=== PATIENT | male | born 1955 | race Hispanic/Latino ===

== ENCOUNTER → 2016-10-17 | Outpatient (CLI) | payer SELFPAY | END | disposition home or self-care (01) | LOC: YCFC.O 14:43 | DX: N40.0 Benign prostatic hyperplasia without lower urinary tract symptoms (principal); I10 Essential (primary) hypertension ==

== ENCOUNTER 2018-05-17 20:55 | Emergency (ER) | payer SELFPAY ==
--- NOTE | 2018-05-17 21:20 | ED.PDOC ---
History of Present Illness - General Chief Complaint: Neuro Symptoms/Deficits Stated Complaint: dizziness Time Seen by Provider: 05/17/18 21:12 Source: family - Exam Limitations: no limitations - History of Present Illness Initial Comments: Kev Garcia 61 y/o male brought by with onset of dizziness feels he was spinning around followed by nausea /vomiting one hour after eating dinner then smoked marijuana.He has history of high blood pressure but not taking antihypertensive medicine for the last one year.Denies recent or remote head trauma,chest pains,blurry vision,hearing loss,ringing in ears but with generalized weakness afterwards.On arrival dizziness slightly better but still feels nauseated. Timing/Duration: 1-3 hours Severity: moderate Episode Description: see hpi Improving Factors: nothing Worsening Factors: nothing Associated Symptoms: other - see hpi Allergies/Adverse Reactions: Allergies NO KNOWN ALLERGY Allergy (Verified 05/17/18 21:39) Home Medications: Ambulatory Orders NK 05/17/18 Review of Systems - Review of Systems Constitutional: States: see HPI, weakness EENTM: States: no symptoms reported Respiratory: States: no symptoms reported Cardiology: States: no symptoms reported Gastrointestinal/Abdominal: States: no symptoms reported Genitourinary: States: no symptoms reported Musculoskeletal: States: no symptoms reported Skin: States: no symptoms reported Neurological: States: see HPI All other Systems: Reviewed and Negative, No Change from Baseline Past Medical History (General) - Patient Medical History Hx Hypertension: Yes - not taking meds quit a year ago Family Medical History - Family History Father Hx Cardiac Disease: Yes - brother-[place] 55 y/o Hx Family Diabetes: Yes - parents Mother Family History: Unknown Physical Exam - Physical Exam General Appearance: Comfortable, No apparent distress, Other - somnolent Eye Exam: bilateral normal ENT Exam: normal ENT inspection, hearing grossly normal, TMs normal, pharynx normal Neck: supple, normal inspection Respiratory: lungs clear, normal breath sounds Cardiovascular/Chest: normal peripheral pulses, regular rate, rhythm, no murmur Peripheral Pulses: radial,right: 2+, radial,left: 2+ Gastrointestinal/Abdominal: non tender, soft, no organomegaly Back Exam: normal inspection, no CVA tenderness, no vertebral tenderness Mental Status: alert, 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 Salinas -Resident Care Manager Rn advised to call hospitalist for transfer /admit - Results/Orders Results/Orders: 05/17/18 21:19 IV Care:Saline Lock per Protoc QSHIFT URINE DRUG SCREEN, 7 ASSAY Stat 05/17/18 23:25 URINALYSIS Stat Laboratory Results - last 24 hr 05/17/18 05/17/18 05/17/18 21:00 21:00 22:20 WBC 8.4 RBC 4.49 L Hgb 13.6 L Hct 39.6 L MCV 88.1 MCH 30.1 MCHC 34.2 RDW 12.8 Plt Count 261 MPV 7.5 Absolute Neuts (auto) 3.80 Absolute Lymphs (auto) 3.60 H Absolute Monos (auto) 0.80 Absolute Eos (auto) 0.20 Absolute Basos (auto) 0.00 Neutrophils % 44.8 Lymphocytes % 42.3 Monocytes % 9.8 H Eosinophils % 2.6 Basophils % 0.5 PT 9.5 INR 0.95 PTT (SP) 22.6 Sodium 138 Potassium 3.3 L Chloride 102 Carbon Dioxide 26 Anion Gap 13.3 BUN 22 H Creatinine 1.02 BUN/Creatinine Ratio 21.6 H Random Glucose 125 H Serum Osmolality 280.5 Calcium 8.7 Magnesium 2.2 Total Bilirubin 0.5 Direct Bilirubin < 0.1 Indirect Bilirubin 0.4 AST 28 ALT 25 Alkaline Phosphatase 106 Creatine Kinase 225 H* CK-MB (CK-2) 4.2 CK-MB (CK-2) % 1.87 Troponin I < 0.02 Serum Total Protein 7.1 Albumin 3.9 Gastric Fluid pH 2.0 Gastric Occult Blood Positive Ethyl Alcohol < 5.40 - EKG/XRAY/CT EKG: Des, Sinus, RBBB, nonspecific ST T wave Chg Comments: HR-49 XRAY: chest - no acute abnormalities CT: abd/p-no acute abnormalities CT Ordered: Yes - no acute intracranial abnormalities Departure - Departure Clinical Impression: Hematemesis with nausea, Dizziness, nonspecific Time of Disposition: 01:55 Disposition: Transfer to Hospital Condition: Fair Departure Forms: ED Discharge - Pt. Copy, Patient Portal Self Enrollment Referrals: Dot Mckenzie NP [Primary Care Provider] - 1-2 Weeks Home Medications: Ambulatory Orders NK 05/17/18 Transfer to Outside Facility - Transfer Information Accepting Provider:: Dr. Vital-Hospitalist Accepting Facility: [facility] Reason for Transfer: required specialist not available - Resident Care Manager Rn
[2018-05-17] MEDS ORDERED: PROCHLORPERAZINE INJ 10 MG/2 ML VIAL IV ONE (21:21)
[2018-05-17] MEDS ORDERED: PANTOPRAZOLE INJECTION 80 MG in SODIUM CHLORIDE 0.9% 100ML 80 ML IVPB ONE (21:21)
[2018-05-17] MEDS ORDERED: PANTOPRAZOLE SODIUM IV 40 MG VIAL ONE (21:24)
[2018-05-17] MEDS ORDERED: SODIUM CHLORIDE 0.9% 100ML 100 ML IVPB ONE (21:24)
--- NOTE | 2018-05-17 22:30 | CT ---
EXAM: Head CLINICAL INDICATION: Dizziness COMPARISON: There is no previous study for comparison. TECHNIQUE: The CT scan was done using contiguous axial 2.5 mm sections through the brain. This exam was performed according to our departmental dose-optimization program, which includes automated exposure control, adjustment of the mA and/or kV according to patient size and/or use of iterative reconstruction technique. FINDINGS: There is no midline shift, mass effect, or extraaxial fluid collection. There is no evidence of acute intracranial hemorrhage, mass lesion, or cerebral edema. Mild diffuse cerebral atrophy is identified. Bone window images reveal no evidence of a skull fracture. IMPRESSION: No evidence of an acute intracranial process. Electronically signed by: Leonid Garcia MD 05/17/2018 10:27 PM CDT
--- NOTE | 2018-05-17 23:05 | RAD ---
EXAM: Single view chest. INDICATION: Nausea, vomiting. COMPARISON: Chest x-ray: 11/25/2006. FINDINGS: Cardiac silhouette: Unremarkable. Keyla: Unremarkable. Lobar consolidation: None. Pleural effusion: None. Pneumothorax: None. Other: None. Bones: Unremarkable. Other: None. IMPRESSION: 1. No acute cardiopulmonary process. Electronically signed by: Guevara Cruz MD 05/17/2018 11:01 PM CDT Workstation: [id number]
--- NOTE | 2018-05-17 23:08 | CT ---
EXAM: CT abdomen and pelvis without contrast. INDICATION: Abdominal pain, acute. Positive occult blood TECHNIQUE: Contiguous axial CT images of the abdomen and pelvis. Intravenous contrast: Absent. Oral contrast: Absent. DLP 766 mGy-cm. This exam was performed according to our departmental dose-optimization program, which includes automated exposure control, adjustment of the mA and/or kV according to patient size and/or use of iterative reconstruction technique. COMPARISON: None. FINDINGS: Lower chest: Partially imaged. Lung bases: Unremarkable. Cardiac apex: Unremarkable. Solid abdominal viscera: Limited by lack of intravenous contrast. Liver: Unremarkable. Gallbladder: Unremarkable. Pancreas: Unremarkable. Spleen: Unremarkable. Adrenal glands: Unremarkable. Right kidney: No urolithiasis or hydronephrosis. Left kidney: No urolithiasis or hydronephrosis. Urinary bladder: Unremarkable. Abdominal aorta: Unremarkable. Peritoneal: Free fluid: None. Free air: None. Other: No pathologic sized lymph nodes in the upper abdomen. Bowel: Stomach: Small hiatal hernia Small bowel: Unremarkable. Appendix: Not uniquely identified, however there are no pericecal inflammatory changes. Colon: There is diverticulosis without diverticulitis. There are postsurgical changes at the sigmoid colon. Rectum: Unremarkable. Prostate: Unremarkable. Bones: There is grade 1 anterolisthesis of L4 over L5 IMPRESSION: No acute findings. Small hiatal hernia. Diverticulosis without evidence of diverticulitis. Electronically signed by: Guevara Cruz MD 05/17/2018 11:05 PM CDT Workstation: [id number]
[2018-05-18 00:46] VITALS: O2SAT 98
[2018-05-18 02:12] VITALS: BP 124/75; TEMP 97.3
== END 2018-05-18 02:25 | disposition short-term general hospital (02) ==
LOC: EDBD 20:55 → ER 20:55
DX: K92.0 Hematemesis (principal); R42 Dizziness and giddiness; R00.1 Bradycardia, unspecified; I45.10 Unspecified right bundle-branch block; I10 Essential (primary) hypertension; F12.90 Cannabis use, unspecified, uncomplicated
CPT/HCPCS: 36415; 70450; 71045; 74176; 80048; 80076; 80307; 80320; 81001; 82270; 82271; 82550; 82553; 83986; 84484; 85025; 85610; 85730; J0780; J7050